=== PATIENT | male | born 1945 | race Caucasian/White ===

== ENCOUNTER 2021-03-31 18:24 | Inpatient (IN) | payer MEDICARE ==
[2021-03-31] MEDS ORDERED: IPRATROPIUM 0.02% NEBU 2.5 ML IH ONE (20:27)
[2021-03-31] MEDS ORDERED: ALBUTEROL 2.5 MG/3 ML NEBU IH ONE (20:27)
[2021-03-31 20:59] LABS: Hematocrit 43.5 % (35.5-45.6); Hemoglobin 14.6 gm/dl (11.8-15.2); Mean Corpuscular HGB Conc 34 % (32-34); Mean Corpuscular Volume 93 fl (84-94); Platelet Count 232 K/mm3 (140-440); Red Blood Count 4.69 M/mm3 (3.65-5.03); Red Cell Distribution Width 13.2 % (13.2-15.2)
--- NOTE | 2021-03-31 21:17 | XRay Report ---
CHEST 1 VIEW INDICATION / CLINICAL INFORMATION: Dyspnea. COMPARISON: None available. FINDINGS: SUPPORT DEVICES: None. HEART / MEDIASTINUM: No significant abnormality. LUNGS / PLEURA: No significant airspace opacities or focal consolidation. Small bilateral effusions. No pneumothorax. ADDITIONAL FINDINGS: No significant additional findings. IMPRESSION: 1. Small bilateral effusions without significant airspace opacities or focal consolidation. Signer Name: Jose Raul Cavazos MD Signed: 03/31/2021 9:13 PM Workstation Name: [id number]
[2021-03-31 21:45] LABS: Blood Urea Nitrogen 9 mg/dL (9-20); Calcium 9.3 mg/dL (8.4-10.2); Hemolysis Index 15
[2021-03-31 21:46] LABS: BUN/Creatinine Ratio 15
[2021-03-31] MEDS ORDERED: ALBUTEROL 2.5 MG/3 ML NEBU IH PRN (23:50)
[2021-03-31] MEDS ORDERED: MORPHINE 2 MG/1 ML INJ IV PRN (23:50)
[2021-03-31] MEDS ORDERED: MAGNESIUM HYDROXIDE (MOM) ORAL LIQD UDC PO PRN (23:50)
[2021-03-31] MEDS ORDERED: ACETAMINOPHEN 325 MG TAB PO PRN (23:50)
[2021-03-31] MEDS ORDERED: ONDANSETRON 4 MG/2 ML INJ IV PRN (23:50)
[2021-03-31] MEDS ORDERED: MORPHINE 4 MG/1 ML INJ IV PRN (23:50)
--- NOTE | 2021-03-31 23:59 | History and Physical Report ---
History of Present Illness Date of examination: 03/31/21 Date of admission: 03/31/2021 Chief complaint: Shortness of Breath History of present illness: 76-year-old male with known history of COPD on 2 L of oxygen by nasal cannula at home, opioid dependence on daily Suboxone, hypertension presents to the emergency room today with a complaint of shortness of breath over the last 24 hours. Patient has also been having some cough which is mildly productive. He denies any fever or chills, denies any chest pain, denies any nausea vomiting and denies any abdominal pain. Patient denies any sick contacts and no recent travel. Denies any contact with anyone with COVID-19. He has been fully vaccinated against COVID-19. Patient received some relief after being given some nebulizing treatments, IV Solu-Medrol and IV magnesium by EMS. Work-up in the emergency room today, chest x-ray reveals small bilateral effusions without significant airspace opacities or focal consolidation. Labs were unremarkable. Patient being admitted for COPD exacerbation. Past History Past Medical History: COPD, hypertension Past Surgical History: No surgical history Social history: smoking (Former Smoker) Family history: no significant family history Medications and Allergies Allergies Allergy/AdvReac Type Severity Reaction Status Date / Time No Known Allergies Allergy Verified 03/31/21 18:28 Review of Systems Constitutional: no fever, no chills Ears, nose, mouth and throat: no nasal congestion, no sore throat Cardiovascular: no chest pain, no palpitations Respiratory: cough, shortness of breath Gastrointestinal: no abdominal pain, no nausea, no vomiting, no diarrhea Genitourinary Male: no dysuria, no hematuria, no flank pain, no nocturia Musculoskeletal: no neck pain, no low back pain Integumentary: no rash, no pruritis Neurological: no headaches, no confusion Psychiatric: no anxiety, no depression Endocrine: no polyphagia, no polydipsia, no polyuria, no nocturia Exam - Constitutional Vitals: Temp Pulse Resp BP Pulse Ox 98.2 F 88 20 125/38 97 03/31/21 19:45 03/31/21 21:14 03/31/21 21:14 03/31/21 21:46 03/31/21 21:46 General appearance: Present: no acute distress, well-nourished - EENT Eyes: Present: PERRL, EOM intact. Absent: scleral icterus ENT: hearing intact, clear oral mucosa, dentition normal - Neck Neck: Present: supple, normal ROM - Respiratory Respiratory effort: normal Respiratory: bilateral: diminished, wheezing (Few scattered wheezes) - Cardiovascular Rhythm: regular Heart Sounds: Present: S1 & S2. Absent: gallop, systolic murmur, diastolic murmur, rub, click - Extremities Extremities: no ischemia, pulses intact, pulses symmetrical, No edema, normal temperature, normal color, Full ROM Peripheral Pulses: within normal limits - Abdominal General gastrointestinal: Present: soft, non-tender, non-distended, normal bowel sounds. Absent: mass - Integumentary Integumentary: Present: clear, warm, dry, normal turgor. Absent: rash - Musculoskeletal Musculoskeletal: strength equal bilaterally - Psychiatric Psychiatric: appropriate mood/affect, intact judgment & insight, memory intact, cooperative - Neurologic Neurologic: CNII-XII intact, no focal deficits, moves all extremities Results - Labs CBC & Chem 7: 03/31/21 20:40 03/31/21 20:40 Labs: Abnormal lab results 03/31/21 03/31/21 Range/Units 20:40 20:40 WBC 11.4 H (4.5-11.0) K/mm3 Sodium 136 L (137-145) mmol/L Creatinine 0.6 L (0.8-1.3) mg/dL Glucose 125 H (75-100) mg/dL Assessment and Plan - Patient Problems (1) COPD exacerbation Current Visit: Yes Status: Acute Plan to address problem: Patient admitted and placed on nebulizing treatments and IV steroid. We will keep O2 saturation greater or equal to 92%. (2) Hypertension Current Visit: Yes Status: Acute Plan to address problem: Blood pressure stable. Resume routine home medications once reconciled. (3) DVT prophylaxis Current Visit: Yes Status: Acute Plan to address problem: Patient placed on subcutaneous heparin. (4) Full code status Current Visit: Yes Status: Acute Plan to address problem: Patient is full code.
--- NOTE | 2021-04-01 00:12 | Emergency Department Report ---
ED Shortness of Breath HPI - General Chief Complaint: Dyspnea/Respdistress Stated Complaint: DIFFICULTY BREATHING Time Seen by Provider: 03/31/21 20:11 Source: EMS Mode of arrival: Stretcher Limitations: No Limitations - History of Present Illness Initial Comments: Chief complaint: "I could not breathe." HPI: This is a 76-year-old male with history of chronic respiratory failure on 2 L nasal cannula, COPD, opioid dependence on daily Suboxone, hypertension who presents with shortness of breath for the last day. Patient has productive cough. He denies fever, chest pain, abdominal pain. He has been vaccinated against COVID-19 including booster dose recently. No known sick contacts. Last hospitalization 2 years ago in [facility]. Recently moved to [place] 2 years ago to be with family members. He received relieved after nebulizer the rapy provided to him by EMS as well as IV Solu-Medrol and IV magnesium. MD Complaint: shortness of breath, cough -: Gradual, days(s) (1 day) Severity: severe Consistency: now resolved Improves With: bronchodilators, other (Solu-Medrol magnesium given per EMS as well as bronchodilator therapy) Worsens With: nothing Known History Of: COPD Associated Symptoms: cough, sputum production - Related Data Home Medications Medication Instructions Recorded Confirmed Last Taken Buprenorphine HCl/Naloxone HCl 1 each SL TID 04/01/21 04/01/21 Unknown [Buprenorphine-Nalox 8-2Mg Film] FLUoxetine [PROzac] 10 mg PO QDAY 04/01/21 04/01/21 Unknown Montelukast [Singulair] 10 mg PO QPM 04/01/21 04/01/21 Unknown Tamsulosin [Flomax] 0.4 mg PO QDAY 04/01/21 04/01/21 Unknown lisinopriL [Lisinopril] 20 mg PO DAILY 04/01/21 04/01/21 Unknown Previous Rx's Medication Instructions Recorded Last Taken Type Fluticasone/Umeclidin/Vilanter 1 each IH DAILY 30 Days 04/04/21 Unknown Rx [Trelegy Ellipta 100-62.5-25] methylPREDNISolone [Medrol 4MG 4 mg PO DAILY #1 04/04/21 Unknown Rx DOSEPAK (21 tabs)] Allergies Allergy/AdvReac Type Severity Reaction Status Date / Time No Known Allergies Allergy Verified 03/31/21 18:28 ED Review of Systems ROS: Stated complaint: DIFFICULTY BREATHING Other details as noted in HPI Comment: All other systems reviewed and negative Constitutional: denies: chills, fever, malaise Respiratory: cough, shortness of breath. denies: wheezing Cardiovascular: denies: chest pain Gastrointestinal: denies: abdominal pain, nausea, vomiting ED Past Medical Hx - Past Medical History Previous Medical History?: Yes Hx Hypertension: Yes Hx COPD: Yes Additional medical history: Opioid dependence on Suboxone therapy - Surgical History Past Surgical History?: Yes Additional Surgical History: Appendectomy - Social History Smoking Status: Former Smoker Substance Use Type: Alcohol - Medications Home Medications: Home Medications Medication Instructions Recorded Confirmed Last Taken Type Buprenorphine HCl/Naloxone HCl 1 each SL TID 04/01/21 04/01/21 Unknown History [Buprenorphine-Nalox 8-2Mg Film] FLUoxetine [PROzac] 10 mg PO QDAY 04/01/21 04/01/21 Unknown History Montelukast [Singulair] 10 mg PO QPM 04/01/21 04/01/21 Unknown History Tamsulosin [Flomax] 0.4 mg PO QDAY 04/01/21 04/01/21 Unknown History lisinopriL [Lisinopril] 20 mg PO DAILY 04/01/21 04/01/21 Unknown History Fluticasone/Umeclidin/Vilanter 1 each IH DAILY 30 Days 04/04/21 Unknown Rx [Trelegy Ellipta 100-62.5-25] methylPREDNISolone [Medrol 4MG 4 mg PO DAILY #1 04/04/21 Unknown Rx DOSEPAK (21 tabs)] ED Physical Exam - General Limitations: No Limitations General appearance: alert, in no apparent distress, other (Speaking full word sentences with mild work of breathing appears out of breath) - Head Head exam: Present: atraumatic, normocephalic - Eye Eye exam: Present: normal appearance - ENT ENT exam: Present: mucous membranes moist - Neck Neck exam: Present: normal inspection, full ROM - Respiratory Respiratory exam: Present: decreased breath sounds, prolonged expiratory. Absent: wheezes, rales, rhonchi, accessory muscle use - Cardiovascular Cardiovascular Exam: Present: regular rate, normal rhythm, normal heart sounds. Absent: systolic murmur, diastolic murmur, rubs, gallop - GI/Abdominal GI/Abdominal exam: Present: soft, normal bowel sounds. Absent: distended, tenderness, guarding, rebound - Rectal Rectal exam: Present: deferred - Extremities Exam Extremities exam: Present: normal inspection - Neurological Exam Neurological exam: Present: alert, oriented X3 - Psychiatric Psychiatric exam: Present: normal affect, normal mood - Skin Skin exam: Present: warm, dry, intact, normal color. Absent: rash ED Course Vital Signs 03/31/21 03/31/21 03/31/21 18:27 19:45 20:00 Temperature 98.4 F 98.2 F Pulse Rate 80 77 71 Pulse Rate [ Bilateral] Respiratory 16 13 29 H Rate Respiratory Rate [Bilateral ] Blood Pressure 152/69 Blood Pressure 150/70 135/72 [Right] O2 Sat by Pulse 99 95 93 Oximetry 03/31/21 03/31/21 03/31/21 20:16 20:30 20:46 Temperature Pulse Rate 68 Pulse Rate [ Bilateral] Respiratory 19 Rate Respiratory Rate [Bilateral ] Blood Pressure 157/76 159/78 157/75 Blood Pressure [Right] O2 Sat by Pulse 93 95 95 Oximetry 03/31/21 03/31/21 03/31/21 21:00 21:14 21:15 Temperature Pulse Rate Pulse Rate [ 88 Bilateral] Respiratory Rate Respiratory 20 Rate [Bilateral ] Blood Pressure 154/64 129/44 Blood Pressure [Right] O2 Sat by Pulse 95 96 Oximetry 03/31/21 03/31/21 03/31/21 21:30 21:46 22:08 Temperature Pulse Rate 75 Pulse Rate [ Bilateral] Respiratory 13 Rate Respiratory Rate [Bilateral ] Blood Pressure 139/43 125/38 125/38 Blood Pressure [Right] O2 Sat by Pulse 98 97 100 Oximetry 03/31/21 04/01/21 22:10 02:00 Temperature Pulse Rate 82 64 Pulse Rate [ Bilateral] Respiratory 11 L 18 Rate Respiratory Rate [Bilateral ] Blood Pressure 125/38 Blood Pressure 137/50 [Right] O2 Sat by Pulse 99 98 Oximetry ED Medical Decision Making - Lab Data Result diagrams: 03/31/21 20:40 04/01/21 04:44 - Radiology Data Radiology results: report reviewed [facility] [address] [place] [address] XRay Report Signed Patient: LUCRECIA DUNLAP MR#: [id number] [birth year] : 1945 Acct:[id number] Age/Sex: 76 / M ADM Date: 03/31/21 Loc: ED Attending Dr: Ordering Physician: Kim Garrido MD Date of Service: 03/31/21 Procedure(s): XR chest 1V ap Accession Number(s): [id number] cc: Kim Garrido MD Fluoro Time In Minutes: CHEST 1 VIEW INDICATION / CLINICAL INFORMATION: Dyspnea. COMPARISON: None available. FINDINGS: SUPPORT DEVICES: None. HEART / MEDIASTINUM: No significant abnormality. LUNGS / PLEURA: No significant airspace opacities or focal consolidation. Small bilateral effusions. No pneumothorax. ADDITIONAL FINDINGS: No significant additional findings. IMPRESSION: 1. Small bilateral effusions without significant airspace opacities or focal consolidation. Signer Name: Jose Raul Herman MD Signed: 03/31/2021 9:13 PM Workstation Name: [id number] Transcribed By: SB Dictated By: JOSE RAUL HERMAN MD Electronically Authenticated By: JOSE RAUL HERMAN MD Signed Date/Time: 03/31/212112 DD/ 10 TD/TT: - Medical Decision Making Acute COPD exacerbation: I personally reviewed chest radiograph: No indication of pneumonia or effusion. No indication of pneumothorax. I did see the hyperinflation of the lungs and atelectasis. Patient received additional albuterol 5 mg and Levaquin. Admitted to the hospital service in [facility] [place] CBC chemistry unremarkable. Critical care attestation.: If time is entered above; I have spent that time in minutes in the direct care of this critically ill patient, excluding procedure time. ED Disposition Clinical Impression: COPD exacerbation Disposition: ADMITTED INPATIENT Is pt being admited?: Yes Does the pt Need Aspirin: No Condition: Stable
[2021-04-01 03:01] LABS: Basophils % (Manual) 0 % (0.0-1.8); Eosinophils % (Manual) 0 % (0.0-4.3); RBC Morphology Normal; Total Cells Counted 100
[2021-04-01 03:02] LABS: Platelet Estimate Consistent w Auto
[2021-04-01] MEDS: IPRATROPIUM/ALBUTEROL SULFATE 3 ML AMPUL.NEB IH SCH ×6 (04:09→21:18)
[2021-04-01 05:46] LABS: INR 0.88 (0.87-1.13)
[2021-04-01 05:54] LABS: Blood Urea Nitrogen 11 mg/dL (9-20); Calcium 9.1 mg/dL (8.4-10.2); Hemolysis Index 0
[2021-04-01 06:09] LABS: BUN/Creatinine Ratio 16
[2021-04-01] MEDS: methylPREDNISolone Sod Succinate 40 MG/1 ML INJ IV SCH ×3 (06:23→22:00)
[2021-04-01] MEDS: HEPARIN 5,000 UNIT/1 ML VIAL SUB-Q SCH ×3 (06:23→22:00)
--- NOTE | 2021-04-01 09:24 | Progress Note ---
Assessment and Plan Assessment and plan: Acute COPD exacerbation Hypertension 04/01/2021. Continue IV Solu-Medrol and bronchodilators/nebulizers. Continue O2 and wean as tolerated. History Interval history: No new issues overnight. Hospitalist Physical - Constitutional Vitals: Temp Pulse Resp BP Pulse Ox 98.2 F 64 18 137/50 98 03/31/21 19:45 04/01/21 02:00 04/01/21 02:00 04/01/21 02:00 04/01/21 02:00 General appearance: Present: no acute distress, well-nourished - EENT Eyes: Present: PERRL, EOM intact ENT: hearing intact, clear oral mucosa, dentition normal - Neck Neck: Present: supple, normal ROM - Respiratory Respiratory effort: normal Respiratory: bilateral: CTA - Cardiovascular Rhythm: regular Heart Sounds: Present: S1 & S2. Absent: gallop, rub - Extremities Extremities: no ischemia, No edema, Full ROM - Abdominal General gastrointestinal: soft, non-tender, non-distended, normal bowel sounds - Integumentary Integumentary: Present: clear, warm, dry - Neurologic Neurologic: CNII-XII intact, moves all extremities Results - Labs CBC & Chem 7: 03/31/21 20:40 04/01/21 04:44 Labs: Laboratory Last Values WBC 11.4 K/mm3 (4.5-11.0) H 03/31/21 20:40 RBC 4.69 M/mm3 (3.65-5.03) 03/31/21 20:40 Hgb 14.6 gm/dl (11.8-15.2) 03/31/21 20:40 Hct 43.5 % (35.5-45.6) 03/31/21 20:40 MCV 93 fl (84-94) 03/31/21 20:40 MCH 31 pg (28-32) 03/31/21 20:40 MCHC 34 % (32-34) 03/31/21 20:40 RDW 13.2 % (13.2-15.2) 03/31/21 20:40 Plt Count 232 K/mm3 (140-440) 03/31/21 20:40 Add Manual Diff Complete 03/31/21 20:40 Total Counted 100 03/31/21 20:40 Seg Neutrophils % [place]ling Floor Desk Clerk 03/31/21 20:40 Seg Neuts % (Manual) 95.0 % (40.0-70.0) H 03/31/21 20:40 Band Neutrophils % 0 % 03/31/21 20:40 Lymphocytes % (Manual) 4.0 % (13.4-35.0) L 03/31/21 20:40 Reactive Lymphs % (Man) 0 % 03/31/21 20:40 Monocytes % (Manual) 1.0 % (0.0-7.3) 03/31/21 20:40 Eosinophils % (Manual) 0 % (0.0-4.3) 03/31/21 20:40 Basophils % (Manual) 0 % (0.0-1.8) 03/31/21 20:40 Metamyelocytes % 0 % 03/31/21 20:40 Myelocytes % 0 % 03/31/21 20:40 Promyelocytes % 0 % 03/31/21 20:40 Blast Cells % 0 % 03/31/21 20:40 Nucleated RBC % Not Reportable 03/31/21 20:40 Seg Neutrophils # Man 10.8 K/mm3 (1.8-7.7) H 03/31/21 20:40 Band Neutrophils # 0.0 K/mm3 03/31/21 20:40 Lymphocytes # (Manual) 0.5 K/mm3 (1.2-5.4) L 03/31/21 20:40 Abs React Lymphs (Man) 0.0 K/mm3 03/31/21 20:40 Monocytes # (Manual) 0.1 K/mm3 (0.0-0.8) 03/31/21 20:40 Eosinophils # (Manual) 0.0 K/mm3 (0.0-0.4) 03/31/21 20:40 Basophils # (Manual) 0.0 K/mm3 (0.0-0.1) 03/31/21 20:40 Metamyelocytes # 0.0 K/mm3 03/31/21 20:40 Myelocytes # 0.0 K/mm3 03/31/21 20:40 Promyelocytes # 0.0 K/mm3 03/31/21 20:40 Blast Cells # 0.0 K/mm3 03/31/21 20:40 WBC Morphology Not Reportable 03/31/21 20:40 Hypersegmented Neuts Not Reportable 03/31/21 20:40 Hyposegmented Neuts Not Reportable 03/31/21 20:40 Hypogranular Neuts Not Reportable 03/31/21 20:40 Smudge Cells Not Reportable 03/31/21 20:40 Toxic Granulation Not Reportable 03/31/21 20:40 Toxic Vacuolation Not Reportable 03/31/21 20:40 Dohle Bodies Not Reportable 03/31/21 20:40 Pelger-Huet Anomaly Not Reportable 03/31/21 20:40 Shayy Rods Not Reportable 03/31/21 20:40 Platelet Estimate Consistent w auto 03/31/21 20:40 Clumped Platelets Not Reportable 03/31/21 20:40 Plt Clumps, EDTA Not Reportable 03/31/21 20:40 Large Platelets Not Reportable 03/31/21 20:40 Giant Platelets Not Reportable 03/31/21 20:40 Platelet Satelliting Not Reportable 03/31/21 20:40 Plt Morphology Comment Not Reportable 03/31/21 20:40 RBC Morphology Normal 03/31/21 20:40 Dimorphic RBCs Not Reportable 03/31/21 20:40 Polychromasia Not Reportable 03/31/21 20:40 Hypochromasia Not Reportable 03/31/21 20:40 Poikilocytosis Not Reportable 03/31/21 20:40 Anisocytosis Not Reportable 03/31/21 20:40 Microcytosis Not Reportable 03/31/21 20:40 Macrocytosis Not Reportable 03/31/21 20:40 Spherocytes Not Reportable 03/31/21 20:40 Pappenheimer Bodies Not Reportable 03/31/21 20:40 Sickle Cells Not Reportable 03/31/21 20:40 Target Cells Not Reportable 03/31/21 20:40 Tear Drop Cells Not Reportable 03/31/21 20:40 Ovalocytes Not Reportable 03/31/21 20:40 Helmet Cells Not Reportable 03/31/21 20:40 Montejo-[place]al[place] Bodies Not Reportable 03/31/21 20:40 [place] Rings Not Reportable 03/31/21 20:40 [place] Cells Not Reportable 03/31/21 20:40 Bite Cells Not Reportable 03/31/21 20:40 Crenated Cell Not Reportable 03/31/21 20:40 Elliptocytes Not Reportable 03/31/21 20:40 Acanthocytes (Spur) Not Reportable 03/31/21 20:40 Rouleaux Not Reportable 03/31/21 20:40 Hemoglobin C Crystals Not Reportable 03/31/21 20:40 Schistocytes Not Reportable 03/31/21 20:40 Malaria parasites Not Reportable 03/31/21 20:40 [place] Bodies Not Reportable 03/31/21 20:40 Hem Pathologist Commnt No 03/31/21 20:40 PT 12.9 Sec. (12.2-14.9) 04/01/21 04:44 INR 0.88 (0.87-1.13) 04/01/21 04:44 Sodium 138 mmol/L (137-145) 04/01/21 04:44 Potassium 4.9 mmol/L (3.6-5.0) 04/01/21 04:44 Chloride 100.0 mmol/L (98-107) 04/01/21 04:44 Carbon Dioxide 24 mmol/L (22-30) 04/01/21 04:44 Anion Gap 19 mmol/L 04/01/21 04:44 BUN 11 mg/dL (9-20) 04/01/21 04:44 Creatinine 0.7 mg/dL (0.8-1.3) L 04/01/21 04:44 Estimated GFR > 60 ml/min 04/01/21 04:44 BUN/Creatinine Ratio 16 % 04/01/21 04:44 Glucose 188 mg/dL (75-100) H 04/01/21 04:44 Calcium 9.1 mg/dL (8.4-10.2) 04/01/21 04:44 Active Medications - Current Medications Current Medications: Generic Name Dose Route Start Last Admin Trade Name Freq PRN Reason Stop Dose Admin Acetaminophen 650 mg 03/31/21 23:50 Acetaminophen 325 Mg Tab PO Q4H PRN Pain MILD(1-3)/Fever >100.5/MAGDALENO Albuterol 2.5 mg 03/31/21 23:50 Albuterol 2.5 Mg/3 Ml Nebu IH Q3HRT PRN Shortness Of Breath Albuterol/Ipratropium 1 ampul 04/01/21 00:00 04/01/21 08:36 Ipratropium/Albuterol Sulfate 3 Ml Ampul.Neb IH Not Given Q4HRT SONU Heparin Sodium (Porcine) 5,000 unit 04/01/21 06:00 04/01/21 06:23 Heparin 5,000 Unit/1 Ml Vial SUB-Q 5,000 unit Q8HR SONU Administration Magnesium Hydroxide 30 ml 03/31/21 23:50 Magnesium Hydroxide (Mom) Oral Liqd Udc PO Q4H PRN Constipation Methylprednisolone Sodium Succinate 40 mg 04/01/21 06:00 04/01/21 06:23 Methylprednisolone Sod Succinate 40 Mg/1 Ml Inj IV 40 mg Q8HR SONU Administration Morphine Sulfate 2 mg 03/31/21 23:50 Morphine 2 Mg/1 Ml Inj IV Q4H PRN Pain, Moderate (4-6) Morphine Sulfate 4 mg 03/31/21 23:50 Morphine 4 Mg/1 Ml Inj IV Q4H PRN Pain , Severe (7-10) Ondansetron HCl 4 mg 03/31/21 23:50 Ondansetron 4 Mg/2 Ml Inj IV Q8H PRN Nausea And Vomiting Sodium Chloride 10 ml 04/01/21 10:00 Sodium Chloride 0.9% 10 Ml Flush Syringe IV BID SONU Sodium Chloride 10 ml 03/31/21 23:50 Sodium Chloride 0.9% 10 Ml Flush Syringe IV PRN PRN LINE FLUSH
[2021-04-01] MEDS ORDERED: [UNRECOGNIZED DRUG - OTHER] SL SCH (20:00)
[2021-04-01] MEDS ORDERED: BUPRENORPHINE 2 MG/NALOXONE 0.5 MG FILM SL SCH (20:00)
[2021-04-01] MEDS ORDERED: BUPRENORPHINE HCL SL SCH (20:00)
[2021-04-01] MEDS ORDERED: NALOXONE HCL SL SCH (20:00)
[2021-04-01] MEDS: TAMSULOSIN 0.4 MG CAP PO SCH (22:00)
[2021-04-01] MEDS: BUPRENORPHINE 2 MG/NALOXONE 0.5 MG FILM SL SCH (22:00)
[2021-04-01] MEDS: MONTELUKAST 10 MG TAB PO SCH (22:05)
[2021-04-02] MEDS: IPRATROPIUM/ALBUTEROL SULFATE 3 ML AMPUL.NEB IH SCH ×5 (05:12→17:31)
[2021-04-02] MEDS: HEPARIN 5,000 UNIT/1 ML VIAL SUB-Q SCH ×3 (05:29→21:08)
[2021-04-02] MEDS: methylPREDNISolone Sod Succinate 40 MG/1 ML INJ IV SCH ×3 (05:29→21:05)
[2021-04-02] MEDS: BUPRENORPHINE 2 MG/NALOXONE 0.5 MG FILM SL SCH ×3 (08:45→21:08)
[2021-04-02] MEDS: LISINOPRIL 20 MG TAB PO SCH (09:16)
[2021-04-02] MEDS: FLUoxetine 10 MG TAB PO SCH (09:16)
[2021-04-02] MEDS: TAMSULOSIN 0.4 MG CAP PO SCH (09:16)
[2021-04-02] MEDS ORDERED: NON-FORMULARY EACH (Fluticasone/Umeclidin/Vilanter [Trelegy Ellipta 100-62.5-25] 1 EACH Bl IH SCH (10:00)
--- NOTE | 2021-04-02 12:42 | Progress Note ---
Assessment and Plan Assessment and plan: Acute COPD exacerbation Hypertension 04/01/2021. Continue IV Solu-Medrol and bronchodilators/nebulizers. Continue O2 and wean as tolerated. 04/02/2021. Patient noted to have increased work of breathing and shortness of breath posttreatment and despite current therapies. We will continue with IV steroids and taper as tolerated. Pulmonary consultation History Interval history: No new issues overnight. Patient still exhibiting shortness of breath and inc reased work of breathing Hospitalist Physical - Constitutional Vitals: Temp Pulse Resp BP Pulse Ox 98.3 F 70 20 102/47 97 04/02/21 08:46 04/02/21 08:46 04/02/21 08:46 04/02/21 08:46 04/02/21 09:00 General appearance: Present: no acute distress, well-nourished - EENT Eyes: Present: PERRL, EOM intact ENT: hearing intact, clear oral mucosa, dentition normal - Neck Neck: Present: supple, normal ROM - Respiratory Respiratory effort: normal Respiratory: bilateral: CTA - Cardiovascular Rhythm: regular Heart Sounds: Present: S1 & S2. Absent: gallop, rub - Extremities Extremities: no ischemia, No edema, Full ROM - Abdominal General gastrointestinal: soft, non-tender, non-distended, normal bowel sounds - Integumentary Integumentary: Present: clear, warm, dry - Neurologic Neurologic: CNII-XII intact, moves all extremities Results - Labs CBC & Chem 7: 03/31/21 20:40 04/01/21 04:44 Labs: Laboratory Last Values WBC 11.4 K/mm3 (4.5-11.0) H 03/31/21 20:40 RBC 4.69 M/mm3 (3.65-5.03) 03/31/21 20:40 Hgb 14.6 gm/dl (11.8-15.2) 03/31/21 20:40 Hct 43.5 % (35.5-45.6) 03/31/21 20:40 MCV 93 fl (84-94) 03/31/21 20:40 MCH 31 pg (28-32) 03/31/21 20:40 MCHC 34 % (32-34) 03/31/21 20:40 RDW 13.2 % (13.2-15.2) 03/31/21 20:40 Plt Count 232 K/mm3 (140-440) 03/31/21 20:40 Add Manual Diff Complete 03/31/21 20:40 Total Counted 100 03/31/21 20:40 Seg Neutrophils % It Systems Analyst Consultant 03/31/21 20:40 Seg Neuts % (Manual) 95.0 % (40.0-70.0) H 03/31/21 20:40 Band Neutrophils % 0 % 03/31/21 20:40 Lymphocytes % (Manual) 4.0 % (13.4-35.0) L 03/31/21 20:40 Reactive Lymphs % (Man) 0 % 03/31/21 20:40 Monocytes % (Manual) 1.0 % (0.0-7.3) 03/31/21 20:40 Eosinophils % (Manual) 0 % (0.0-4.3) 03/31/21 20:40 Basophils % (Manual) 0 % (0.0-1.8) 03/31/21 20:40 Metamyelocytes % 0 % 03/31/21 20:40 Myelocytes % 0 % 03/31/21 20:40 Promyelocytes % 0 % 03/31/21 20:40 Blast Cells % 0 % 03/31/21 20:40 Nucleated RBC % Not Reportable 03/31/21 20:40 Seg Neutrophils # Man 10.8 K/mm3 (1.8-7.7) H 03/31/21 20:40 Band Neutrophils # 0.0 K/mm3 03/31/21 20:40 Lymphocytes # (Manual) 0.5 K/mm3 (1.2-5.4) L 03/31/21 20:40 Abs React Lymphs (Man) 0.0 K/mm3 03/31/21 20:40 Monocytes # (Manual) 0.1 K/mm3 (0.0-0.8) 03/31/21 20:40 Eosinophils # (Manual) 0.0 K/mm3 (0.0-0.4) 03/31/21 20:40 Basophils # (Manual) 0.0 K/mm3 (0.0-0.1) 03/31/21 20:40 Metamyelocytes # 0.0 K/mm3 03/31/21 20:40 Myelocytes # 0.0 K/mm3 03/31/21 20:40 Promyelocytes # 0.0 K/mm3 03/31/21 20:40 Blast Cells # 0.0 K/mm3 03/31/21 20:40 WBC Morphology Not Reportable 03/31/21 20:40 Hypersegmented Neuts Not Reportable 03/31/21 20:40 Hyposegmented Neuts Not Reportable 03/31/21 20:40 Hypogranular Neuts Not Reportable 03/31/21 20:40 Smudge Cells Not Reportable 03/31/21 20:40 Toxic Granulation Not Reportable 03/31/21 20:40 Toxic Vacuolation Not Reportable 03/31/21 20:40 Dohle Bodies Not Reportable 03/31/21 20:40 Pelger-Huet Anomaly Not Reportable 03/31/21 20:40 Shayy Rods Not Reportable 03/31/21 20:40 Platelet Estimate Consistent w auto 03/31/21 20:40 Clumped Platelets Not Reportable 03/31/21 20:40 Plt Clumps, EDTA Not Reportable 03/31/21 20:40 Large Platelets Not Reportable 03/31/21 20:40 Giant Platelets Not Reportable 03/31/21 20:40 Platelet Satelliting Not Reportable 03/31/21 20:40 Plt Morphology Comment Not Reportable 03/31/21 20:40 RBC Morphology Normal 03/31/21 20:40 Dimorphic RBCs Not Reportable 03/31/21 20:40 Polychromasia Not Reportable 03/31/21 20:40 Hypochromasia Not Reportable 03/31/21 20:40 Poikilocytosis Not Reportable 03/31/21 20:40 Anisocytosis Not Reportable 03/31/21 20:40 Microcytosis Not Reportable 03/31/21 20:40 Macrocytosis Not Reportable 03/31/21 20:40 Spherocytes Not Reportable 03/31/21 20:40 Pappenheimer Bodies Not Reportable 03/31/21 20:40 Sickle Cells Not Reportable 03/31/21 20:40 Target Cells Not Reportable 03/31/21 20:40 Tear Drop Cells Not Reportable 03/31/21 20:40 Ovalocytes Not Reportable 03/31/21 20:40 Helmet Cells Not Reportable 03/31/21 20:40 [place] Bodies Not Reportable 03/31/21 20:40 [place] Rings Not Reportable 03/31/21 20:40 [place] Cells Not Reportable 03/31/21 20:40 Bite Cells Not Reportable 03/31/21 20:40 Crenated Cell Not Reportable 03/31/21 20:40 Elliptocytes Not Reportable 03/31/21 20:40 Acanthocytes (Spur) Not Reportable 03/31/21 20:40 Rouleaux Not Reportable 03/31/21 20:40 Hemoglobin C Crystals Not Reportable 03/31/21 20:40 Schistocytes Not Reportable 03/31/21 20:40 Malaria parasites Not Reportable 03/31/21 20:40 [place] Bodies Not Reportable 03/31/21 20:40 Hem Pathologist Commnt No 03/31/21 20:40 PT 12.9 Sec. (12.2-14.9) 04/01/21 04:44 INR 0.88 (0.87-1.13) 04/01/21 04:44 Sodium 138 mmol/L (137-145) 04/01/21 04:44 Potassium 4.9 mmol/L (3.6-5.0) 04/01/21 04:44 Chloride 100.0 mmol/L (98-107) 04/01/21 04:44 Carbon Dioxide 24 mmol/L (22-30) 04/01/21 04:44 Anion Gap 19 mmol/L 04/01/21 04:44 BUN 11 mg/dL (9-20) 04/01/21 04:44 Creatinine 0.7 mg/dL (0.8-1.3) L 04/01/21 04:44 Estimated GFR > 60 ml/min 04/01/21 04:44 BUN/Creatinine Ratio 16 % 04/01/21 04:44 Glucose 188 mg/dL (75-100) H 04/01/21 04:44 Calcium 9.1 mg/dL (8.4-10.2) 04/01/21 04:44 Vale/IV: Voiding Method Toilet Active Medications - Current Medications Current Medications: Generic Name Dose Route Start Last Admin Trade Name Freq PRN Reason Stop Dose Admin Acetaminophen 650 mg 03/31/21 23:50 Acetaminophen 325 Mg Tab PO Q4H PRN Pain MILD(1-3)/Fever >100.5/MAGDALENO Albuterol 2.5 mg 03/31/21 23:50 Albuterol 2.5 Mg/3 Ml Nebu IH Q3HRT PRN Shortness Of Breath Albuterol/Ipratropium 1 ampul 04/01/21 00:00 04/02/21 11:16 Ipratropium/Albuterol Sulfate 3 Ml Ampul.Neb IH Not Given Q4HRT SONU Buprenorphine HCl 4 each 04/01/21 20:00 04/02/21 08:45 Buprenorphine 2 Mg/Naloxone 0.5 Mg Film SL 4 each TID SONU Administration Fluoxetine HCl 10 mg 04/02/21 10:00 04/02/21 09:16 Fluoxetine 10 Mg Tab PO 10 mg QDAY SONU Administration Heparin Sodium (Porcine) 5,000 unit 04/01/21 06:00 04/02/21 05:29 Heparin 5,000 Unit/1 Ml Vial SUB-Q 5,000 unit Q8HR SONU Administration Lisinopril 20 mg 04/02/21 10:00 04/02/21 09:16 Lisinopril 20 Mg Tab PO 20 mg DAILY SONU Administration Magnesium Hydroxide 30 ml 03/31/21 23:50 Magnesium Hydroxide (Mom) Oral Liqd Udc PO Q4H PRN Constipation Methylprednisolone Sodium Succinate 40 mg 04/01/21 06:00 04/02/21 05:29 Methylprednisolone Sod Succinate 40 Mg/1 Ml Inj IV 40 mg Q8HR SONU Administration Montelukast Sodium 10 mg 04/01/21 18:00 04/01/21 22:05 Montelukast 10 Mg Tab PO 10 mg QPM SONU Administration Ondansetron HCl 4 mg 03/31/21 23:50 Ondansetron 4 Mg/2 Ml Inj IV Q8H PRN Nausea And Vomiting Sodium Chloride 10 ml 04/01/21 10:00 04/02/21 09:16 Sodium Chloride 0.9% 10 Ml Flush Syringe IV 10 ml BID SONU Administration Sodium Chloride 10 ml 03/31/21 23:50 Sodium Chloride 0.9% 10 Ml Flush Syringe IV PRN PRN LINE FLUSH Tamsulosin HCl 0.4 mg 04/01/21 18:30 04/02/21 09:16 Tamsulosin 0.4 Mg Cap PO 0.4 mg QDAY SONU Administration
--- NOTE | 2021-04-02 13:52 | Consultation ---
History of Present Illness Consult date: 04/02/21 Requesting physician: BE ORTEGA Reason for consult: COPD, hypoxemia History of present illness: 76 y/o male with history of COPD, not followed by our practice admitted with COPD exacerbation. CXR shows small bilateral pleural effusions. patient is fully vaccinated against covid and denies any covid contacts per report. SUffers from chronic respiratory failure and is on 2 liters at home. Past History Past Medical History: COPD, hypertension Past Surgical History: No surgical history Social history: smoking (Former Smoker) Family history: no significant family history Medications and Allergies Allergies Allergy/AdvReac Type Severity Reaction Status Date / Time No Known Allergies Allergy Verified 03/31/21 18:28 Home Medications Medication Instructions Recorded Confirmed Last Taken Type Buprenorphine HCl/Naloxone HCl 1 each SL TID 04/01/21 04/01/21 Unknown History [Buprenorphine-Nalox 8-2Mg Film] FLUoxetine [PROzac] 10 mg PO QDAY 04/01/21 04/01/21 Unknown History Fluticasone/Umeclidin/Vilanter 1 each IH DAILY 04/01/21 04/01/21 Unknown History [Trelegy Ellipta 100-62.5-25] Montelukast [Singulair] 10 mg PO QPM 04/01/21 04/01/21 Unknown History Tamsulosin [Flomax] 0.4 mg PO QDAY 04/01/21 04/01/21 Unknown History lisinopriL [Lisinopril] 20 mg PO DAILY 04/01/21 04/01/21 Unknown History Active Meds: Active Medications Acetaminophen (Acetaminophen 325 Mg Tab) 650 mg PO Q4H PRN PRN Reason: Pain MILD(1-3)/Fever >100.5/MAGDALENO Albuterol (Albuterol 2.5 Mg/3 Ml Nebu) 2.5 mg IH Q3HRT PRN PRN Reason: Shortness Of Breath Albuterol/Ipratropium (Ipratropium/Albuterol Sulfate 3 Ml Ampul.Neb) 1 ampul IH Q4HRT [facility] Last Admin: 04/02/21 13:00 Dose: 1 ampul Buprenorphine HCl (Buprenorphine 2 Mg/Naloxone 0.5 Mg Film) 4 each SL TID [facility] Last Admin: 04/02/21 08:45 Dose: 4 each Fluoxetine HCl (Fluoxetine 10 Mg Tab) 10 mg PO QDAY [facility] Last Admin: 04/02/21 09:16 Dose: 10 mg Heparin Sodium (Porcine) (Heparin 5,000 Unit/1 Ml Vial) 5,000 unit SUB-Q Q8HR [facility] Last Admin: 04/02/21 05:29 Dose: 5,000 unit Lisinopril (Lisinopril 20 Mg Tab) 20 mg PO DAILY [facility] Last Admin: 04/02/21 09:16 Dose: 20 mg Magnesium Hydroxide (Magnesium Hydroxide (Mom) Oral Liqd Udc) 30 ml PO Q4H PRN PRN Reason: Constipation Methylprednisolone Sodium Succinate (Methylprednisolone Sod Succinate 40 Mg/1 Ml Inj) 40 mg IV Q8HR [facility] Last Admin: 04/02/21 05:29 Dose: 40 mg Montelukast Sodium (Montelukast 10 Mg Tab) 10 mg PO QPM [facility] Last Admin: 04/01/21 22:05 Dose: 10 mg Ondansetron HCl (Ondansetron 4 Mg/2 Ml Inj) 4 mg IV Q8H PRN PRN Reason: Nausea And Vomiting Sodium Chloride (Sodium Chloride 0.9% 10 Ml Flush Syringe) 10 ml IV BID [facility] Last Admin: 04/02/21 09:16 Dose: 10 ml Sodium Chloride (Sodium Chloride 0.9% 10 Ml Flush Syringe) 10 ml IV PRN PRN PRN Reason: LINE FLUSH Tamsulosin HCl (Tamsulosin 0.4 Mg Cap) 0.4 mg PO QDAY [facility] Last Admin: 04/02/21 09:16 Dose: 0.4 mg Review of Systems All systems: negative Physical Examination Vital signs: Vital Signs Temp Pulse Resp BP Pulse Ox 98.4 F 80 16 150/70 99 03/31/21 18:27 03/31/21 18:27 03/31/21 18:27 03/31/21 18:27 03/31/21 18:27 Results - Laboratory Findings CBC and BMP: 03/31/21 20:40 04/01/21 04:44 PT/INR, D-dimer PT 12.9 Sec. (12.2-14.9) 04/01/21 04:44 INR 0.88 (0.87-1.13) 04/01/21 04:44 Abnormal lab findings: Abnormal Labs 03/31/21 03/31/21 04/01/21 20:40 20:40 04:44 WBC 11.4 H Seg Neuts % (Manual) 95.0 H Lymphocytes % (Manual) 4.0 L Seg Neutrophils # Man 10.8 H Lymphocytes # (Manual) 0.5 L Sodium 136 L Creatinine 0.6 L 0.7 L Glucose 125 H 188 H - Diagnostic Findings Chest x-ray: image reviewed Assessment and Plan 76 y/o male with chronic respiratory failure admitted with COPD exacerbation. 1. Will send BNP 2. If mildly elevated would consider some gentle diuresis given bilateral pleural effusions 3. Agree with current steroid regimen 4. Will add BID pulmicort.
[2021-04-02] MEDS: MONTELUKAST 10 MG TAB PO SCH (18:25)
[2021-04-03] MEDS: methylPREDNISolone Sod Succinate 40 MG/1 ML INJ IV SCH ×3 (05:45→21:43)
[2021-04-03] MEDS: HEPARIN 5,000 UNIT/1 ML VIAL SUB-Q SCH ×3 (05:45→21:58)
[2021-04-03] MEDS: IPRATROPIUM/ALBUTEROL SULFATE 3 ML AMPUL.NEB IH SCH ×6 (07:45→20:33)
--- NOTE | 2021-04-03 09:52 | Progress Note ---
Assessment and Plan Assessment and plan: Acute COPD exacerbation Bilateral pleural effusion Hypertension 04/01/2021. Continue IV Solu-Medrol and bronchodilators/nebulizers. Continue O2 and wean as tolerated. 04/02/2021. Patient noted to have increased work of breathing and shortness of breath posttreatment and despite current therapies. We will continue with IV steroids and taper as tolerated. Pulmonary consultation 04/03/2021. Patient continues to have dyspnea and increased work of breathing. We will check BNP and echocardiogram given the bilateral pleural effusions. I suspect patient may have a component of heart failure. History Interval history: No new issues overnight. Patient still exhibiting shortness of breath and increased work of breathing Hospitalist Physical - Constitutional Vitals: Temp Pulse Resp BP Pulse Ox 98.4 F 65 18 125/53 95 04/03/21 04:05 04/03/21 07:46 04/03/21 07:46 04/03/21 04:05 04/03/21 08:14 General appearance: Present: no acute distress, well-nourished - EENT Eyes: Present: PERRL, EOM intact ENT: hearing intact, clear oral mucosa, dentition normal - Neck Neck: Present: supple, normal ROM - Respiratory Respiratory effort: normal Respiratory: bilateral: CTA - Cardiovascular Rhythm: regular Heart Sounds: Present: S1 & S2. Absent: gallop, rub - Extremities Extremities: no ischemia, No edema, Full ROM - Abdominal General gastrointestinal: soft, non-tender, non-distended, normal bowel sounds - Integumentary Integumentary: Present: clear, warm, dry - Neurologic Neurologic: CNII-XII intact, moves all extremities Results - Labs CBC & Chem 7: 03/31/21 20:40 04/01/21 04:44 Labs: Laboratory Last Values WBC 11.4 K/mm3 (4.5-11.0) H 03/31/21 20:40 RBC 4.69 M/mm3 (3.65-5.03) 03/31/21 20:40 Hgb 14.6 gm/dl (11.8-15.2) 03/31/21 20:40 Hct 43.5 % (35.5-45.6) 03/31/21 20:40 MCV 93 fl (84-94) 03/31/21 20:40 MCH 31 pg (28-32) 03/31/21 20:40 MCHC 34 % (32-34) 03/31/21 20:40 RDW 13.2 % (13.2-15.2) 03/31/21 20:40 Plt Count 232 K/mm3 (140-440) 03/31/21 20:40 Add Manual Diff Complete 03/31/21 20:40 Total Counted 100 03/31/21 20:40 Seg Neutrophils % [place] Sdet 03/31/21 20:40 Seg Neuts % (Manual) 95.0 % (40.0-70.0) H 03/31/21 20:40 Band Neutrophils % 0 % 03/31/21 20:40 Lymphocytes % (Manual) 4.0 % (13.4-35.0) L 03/31/21 20:40 Reactive Lymphs % (Man) 0 % 03/31/21 20:40 Monocytes % (Manual) 1.0 % (0.0-7.3) 03/31/21 20:40 Eosinophils % (Manual) 0 % (0.0-4.3) 03/31/21 20:40 Basophils % (Manual) 0 % (0.0-1.8) 03/31/21 20:40 Metamyelocytes % 0 % 03/31/21 20:40 Myelocytes % 0 % 03/31/21 20:40 Promyelocytes % 0 % 03/31/21 20:40 Blast Cells % 0 % 03/31/21 20:40 Nucleated RBC % Not Reportable 03/31/21 20:40 Seg Neutrophils # Man 10.8 K/mm3 (1.8-7.7) H 03/31/21 20:40 Band Neutrophils # 0.0 K/mm3 03/31/21 20:40 Lymphocytes # (Manual) 0.5 K/mm3 (1.2-5.4) L 03/31/21 20:40 Abs React Lymphs (Man) 0.0 K/mm3 03/31/21 20:40 Monocytes # (Manual) 0.1 K/mm3 (0.0-0.8) 03/31/21 20:40 Eosinophils # (Manual) 0.0 K/mm3 (0.0-0.4) 03/31/21 20:40 Basophils # (Manual) 0.0 K/mm3 (0.0-0.1) 03/31/21 20:40 Metamyelocytes # 0.0 K/mm3 03/31/21 20:40 Myelocytes # 0.0 K/mm3 03/31/21 20:40 Promyelocytes # 0.0 K/mm3 03/31/21 20:40 Blast Cells # 0.0 K/mm3 03/31/21 20:40 WBC Morphology Not Reportable 03/31/21 20:40 Hypersegmented Neuts Not Reportable 03/31/21 20:40 Hyposegmented Neuts Not Reportable 03/31/21 20:40 Hypogranular Neuts Not Reportable 03/31/21 20:40 Smudge Cells Not Reportable 03/31/21 20:40 Toxic Granulation Not Reportable 03/31/21 20:40 Toxic Vacuolation Not Reportable 03/31/21 20:40 Dohle Bodies Not Reportable 03/31/21 20:40 Pelger-Huet Anomaly Not Reportable 03/31/21 20:40 Shayy Rods Not Reportable 03/31/21 20:40 Platelet Estimate Consistent w auto 03/31/21 20:40 Clumped Platelets Not Reportable 03/31/21 20:40 Plt Clumps, EDTA Not Reportable 03/31/21 20:40 Large Platelets Not Reportable 03/31/21 20:40 Giant Platelets Not Reportable 03/31/21 20:40 Platelet Satelliting Not Reportable 03/31/21 20:40 Plt Morphology Comment Not Reportable 03/31/21 20:40 RBC Morphology Normal 03/31/21 20:40 Dimorphic RBCs Not Reportable 03/31/21 20:40 Polychromasia Not Reportable 03/31/21 20:40 Hypochromasia Not Reportable 03/31/21 20:40 Poikilocytosis Not Reportable 03/31/21 20:40 Anisocytosis Not Reportable 03/31/21 20:40 Microcytosis Not Reportable 03/31/21 20:40 Macrocytosis Not Reportable 03/31/21 20:40 Spherocytes Not Reportable 03/31/21 20:40 Pappenheimer Bodies Not Reportable 03/31/21 20:40 Sickle Cells Not Reportable 03/31/21 20:40 Target Cells Not Reportable 03/31/21 20:40 Tear Drop Cells Not Reportable 03/31/21 20:40 Ovalocytes Not Reportable 03/31/21 20:40 Helmet Cells Not Reportable 03/31/21 20:40 [place] Bodies Not Reportable 03/31/21 20:40 [place] Rings Not Reportable 03/31/21 20:40 [place] Cells Not Reportable 03/31/21 20:40 Bite Cells Not Reportable 03/31/21 20:40 Crenated Cell Not Reportable 03/31/21 20:40 Elliptocytes Not Reportable 03/31/21 20:40 Acanthocytes (Spur) Not Reportable 03/31/21 20:40 Rouleaux Not Reportable 03/31/21 20:40 Hemoglobin C Crystals Not Reportable 03/31/21 20:40 Schistocytes Not Reportable 03/31/21 20:40 Malaria parasites Not Reportable 03/31/21 20:40 [place] Bodies Not Reportable 03/31/21 20:40 Hem Pathologist Commnt No 03/31/21 20:40 PT 12.9 Sec. (12.2-14.9) 04/01/21 04:44 INR 0.88 (0.87-1.13) 04/01/21 04:44 Sodium 138 mmol/L (137-145) 04/01/21 04:44 Potassium 4.9 mmol/L (3.6-5.0) 04/01/21 04:44 Chloride 100.0 mmol/L (98-107) 04/01/21 04:44 Carbon Dioxide 24 mmol/L (22-30) 04/01/21 04:44 Anion Gap 19 mmol/L 04/01/21 04:44 BUN 11 mg/dL (9-20) 04/01/21 04:44 Creatinine 0.7 mg/dL (0.8-1.3) L 04/01/21 04:44 Estimated GFR > 60 ml/min 04/01/21 04:44 BUN/Creatinine Ratio 16 % 04/01/21 04:44 Glucose 188 mg/dL (75-100) H 04/01/21 04:44 Calcium 9.1 mg/dL (8.4-10.2) 04/01/21 04:44 Vale/IV: Voiding Method Toilet Active Medications - Current Medications Current Medications: Generic Name Dose Route Start Last Admin Trade Name Freq PRN Reason Stop Dose Admin Acetaminophen 650 mg 03/31/21 23:50 Acetaminophen 325 Mg Tab PO Q4H PRN Pain MILD(1-3)/Fever >100.5/MAGDALENO Albuterol 2.5 mg 03/31/21 23:50 Albuterol 2.5 Mg/3 Ml Nebu IH Q3HRT PRN Shortness Of Breath Albuterol/Ipratropium 1 ampul 04/01/21 00:00 04/03/21 07:46 Ipratropium/Albuterol Sulfate 3 Ml Ampul.Neb IH 1 ampul Q4HRT SONU Administration Buprenorphine HCl 4 each 04/01/21 20:00 04/02/21 21:08 Buprenorphine 2 Mg/Naloxone 0.5 Mg Film SL 2 each TID SONU Administration Fluoxetine HCl 10 mg 04/02/21 10:00 04/02/21 09:16 Fluoxetine 10 Mg Tab PO 10 mg QDAY SONU Administration Heparin Sodium (Porcine) 5,000 unit 04/01/21 06:00 04/03/21 05:45 Heparin 5,000 Unit/1 Ml Vial SUB-Q 5,000 unit Q8HR SONU Administration Lisinopril 20 mg 04/02/21 10:00 04/02/21 09:16 Lisinopril 20 Mg Tab PO 20 mg DAILY SONU Administration Magnesium Hydroxide 30 ml 03/31/21 23:50 Magnesium Hydroxide (Mom) Oral Liqd Udc PO Q4H PRN Constipation Methylprednisolone Sodium Succinate 40 mg 04/01/21 06:00 04/03/21 05:45 Methylprednisolone Sod Succinate 40 Mg/1 Ml Inj IV 40 mg Q8HR SONU Administration Montelukast Sodium 10 mg 04/01/21 18:00 04/02/21 18:25 Montelukast 10 Mg Tab PO 10 mg QPM SONU Administration Ondansetron HCl 4 mg 03/31/21 23:50 Ondansetron 4 Mg/2 Ml Inj IV Q8H PRN Nausea And Vomiting Sodium Chloride 10 ml 04/01/21 10:00 04/02/21 21:08 Sodium Chloride 0.9% 10 Ml Flush Syringe IV 10 ml BID SONU Administration Sodium Chloride 10 ml 03/31/21 23:50 Sodium Chloride 0.9% 10 Ml Flush Syringe IV PRN PRN LINE FLUSH Tamsulosin HCl 0.4 mg 04/01/21 18:30 04/02/21 09:16 Tamsulosin 0.4 Mg Cap PO 0.4 mg QDAY SONU Administration
[2021-04-03] MEDS: BUPRENORPHINE 2 MG/NALOXONE 0.5 MG FILM SL SCH ×3 (10:15→20:35)
[2021-04-03] MEDS: FLUoxetine 10 MG TAB PO SCH (10:16)
[2021-04-03] MEDS: LISINOPRIL 20 MG TAB PO SCH (10:16)
[2021-04-03] MEDS: TAMSULOSIN 0.4 MG CAP PO SCH (10:16)
--- NOTE | 2021-04-03 11:52 | Progress Note ---
Assessment and Plan 76 y/o male with chronic respiratory failure admitted with COPD exacerbation. 04/03/21: Order BNP now, follow up echo. Continue steroids and continue scheduled pulmicort. 1. Will send BNP 2. If mildly elevated would consider some gentle diuresis given bilateral pleural effusions 3. Agree with current steroid regimen 4. Will add BID pulmicort. Subjective Date of service: 04/03/21 Interval history: patient off floor for echo Objective Vital Signs - 12hr 04/02/21 04/03/21 04/03/21 23:53 04:05 07:46 Temperature 98.1 F 98.4 F Pulse Rate 81 63 Pulse Rate [ 65 Bilateral] Respiratory 22 20 Rate Respiratory 18 Rate [Bilateral ] Blood Pressure 125/58 125/53 O2 Sat by Pulse 95 94 95 Oximetry 04/03/21 08:14 Temperature Pulse Rate Pulse Rate [ Bilateral] Respiratory Rate Respiratory Rate [Bilateral ] Blood Pressure O2 Sat by Pulse 95 Oximetry CBC and BMP: 03/31/21 20:40 04/01/21 04:44 ABG, PT/INR, D-dimer: PT/INR, D-dimer PT 12.9 Sec. (12.2-14.9) 04/01/21 04:44 INR 0.88 (0.87-1.13) 04/01/21 04:44 Abnormal lab findings: Abnormal Labs 03/31/21 03/31/21 04/01/21 20:40 20:40 04:44 WBC 11.4 H Seg Neuts % (Manual) 95.0 H Lymphocytes % (Manual) 4.0 L Seg Neutrophils # Man 10.8 H Lymphocytes # (Manual) 0.5 L Sodium 136 L Creatinine 0.6 L 0.7 L Glucose 125 H 188 H
[2021-04-03] MEDS: MONTELUKAST 10 MG TAB PO SCH (17:33)
[2021-04-04] MEDS: IPRATROPIUM/ALBUTEROL SULFATE 3 ML AMPUL.NEB IH SCH ×4 (01:40→13:00)
[2021-04-04] MEDS: methylPREDNISolone Sod Succinate 40 MG/1 ML INJ IV SCH (05:35)
[2021-04-04] MEDS: HEPARIN 5,000 UNIT/1 ML VIAL SUB-Q SCH (05:37)
--- NOTE | 2021-04-04 09:11 | Discharge Summary ---
Providers - Providers Date of Admission: 04/02/21 13:10 Date of discharge: 04/04/21 Attending physician: BE ORTEGA 04/02/21 12:41 Consult to Physician [CONS] Routine Comment: Consulting Provider: EUN SEVILLA Physician Instructions: Reason For Exam: COPD exac Primary care physician: MINERVA SARAVIA Hospitalization Reason for admission: COPD exac Condition: Stable Hospital course: 76 y/o male with history of COPD, not followed by our practice admitted with COPD exacerbation, bilateral pleural effusion and hypertension. CXR showed small bilateral pleural effusions. Patient is fully vaccinated against covid and denies any covid contacts per report. SUffers from chronic respiratory failure and is on 2 liters at home. Hospital course: . Continue IV Solu-Medrol and bronchodilators/nebulizers. Continue O2 and wean as tolerated. 04/02/2021. Patient noted to have increased work of breathing and shortness of breath posttreatment and despite current therapies. We will continue with IV steroids and taper as tolerated. Pulmonary consultation 04/03/2021. Patient continues to have dyspnea and increased work of breathing. We will check BNP and echocardiogram given the bilateral pleural effusions. I suspect patient may have a component of heart failure. 04/04/2021. Patient had an echocardiogram that revealed normal EF of 60%. Patient also had a BNP that was found to be normal. Patient is back to baseline respiratory status and will be discharged home. Dedicated discharge time 35 minutes Disposition: 30 STILL A PATIENT Final Discharge Diagnosis (Prints w/discharge instructions): COPD exacerbation, small bilateral pleural effusions and hypertension Core Measure Documentation - Palliative Care Palliative Care/ Comfort Measures: Not Applicable - Core Measures Any of the following diagnoses?: none Exam - Constitutional Vitals: Temp Pulse Resp BP Pulse Ox 98.2 F 67 18 141/63 93 04/04/21 07:39 04/04/21 07:39 04/04/21 07:39 04/04/21 07:39 04/04/21 07:39 General appearance: Present: no acute distress, well-nourished - EENT Eyes: Present: PERRL ENT: hearing intact, clear oral mucosa - Neck Neck: Present: supple, normal ROM - Respiratory Respiratory effort: normal Respiratory: bilateral: CTA - Cardiovascular Heart Sounds: Present: S1 & S2. Absent: rub, click - Extremities Extremities: pulses symmetrical, No edema Peripheral Pulses: within normal limits - Abdominal General gastrointestinal: Present: soft, non-tender, non-distended, normal bowel sounds Male genitourinary: Present: normal - Integumentary Integumentary: Present: clear, warm, dry - Musculoskeletal Musculoskeletal: gait normal, strength equal bilaterally - Psychiatric Psychiatric: appropriate mood/affect, intact judgment & insight - Neurologic Neurologic: CNII-XII intact, moves all extremities Plan Activity: advance as tolerated Weight Bearing Status: Weight Bear as Tolerated Diet: regular Follow up with: PRIMARY CARE, [Referring] - 3-5 Days Prescriptions: methylPREDNISolone [Medrol 4MG DOSEPAK (21 tabs)] 4 mg PO DAILY #1 Fluticasone/Umeclidin/Vilanter [Trelegy Ellipta [id number]] 1 each IH DAILY 30 Days
[2021-04-04] MEDS: FLUoxetine 10 MG TAB PO SCH (11:51)
[2021-04-04] MEDS: TAMSULOSIN 0.4 MG CAP PO SCH (11:51)
[2021-04-04] MEDS: LISINOPRIL 20 MG TAB PO SCH (11:56)
[2021-04-04 11:57] VITALS: BP 135/71
[2021-04-04] MEDS: BUPRENORPHINE 2 MG/NALOXONE 0.5 MG FILM SL SCH (12:03)
--- NOTE | 2021-04-04 13:57 | Progress Note ---
Assessment and Plan 76 y/o male with chronic respiratory failure admitted with COPD exacerbation. 04/04/2021: It appears patient does not have congestive heart failure all breathing difficulties are related to COPD with exacerbation. Agree with discharge at this time. Patient will require triple therapy with combination of inhaled LAMA/LABA/ICS. Patient does not follow-up with a oncology nurse navigator. He is recommended to follow-up with Dr. Mullen will require complete pulmonary function evaluation. 04/03/21: Order BNP now, follow up echo. Continue steroids and continue scheduled pulmicort. Subjective Date of service: 04/04/21 Interval history: Patient is feeling better. Seems to have significant COPD. Has not seen a oncology nurse navigator. Currently being followed by his primary care physician Dr. Dallas Gross in [facility]. BNP is normal echocardiogram suggest normal ejection fraction and elevated pulmonary artery pressures Objective Vital Signs - 12hr 04/04/21 04/04/21 04/04/21 03:58 04:00 07:39 Temperature 97.7 F 97.7 F 98.2 F Pulse Rate 69 105 H 67 Pulse Rate [ Bilateral] Respiratory 18 16 18 Rate Respiratory Rate [Bilateral ] Blood Pressure 126/57 141/63 Blood Pressure 137/64 [Right] O2 Sat by Pulse 94 94 93 Oximetry 04/04/21 04/04/21 04/04/21 09:00 09:45 09:46 Temperature Pulse Rate Pulse Rate [ 80 Bilateral] Respiratory 25 H Rate Respiratory 18 Rate [Bilateral ] Blood Pressure Blood Pressure [Right] O2 Sat by Pulse 100 97 Oximetry 04/04/21 11:56 Temperature Pulse Rate 80 Pulse Rate [ Bilateral] Respiratory Rate Respiratory Rate [Bilateral ] Blood Pressure 135/71 Blood Pressure [Right] O2 Sat by Pulse Oximetry Constitutional: no acute distress Eyes: non-icteric ENT: oropharynx moist Neck: supple, no lymphadenopathy Effort: mildly labored Ascultation: Bilateral: diminished breath sounds (Bilaterally) Cardiovascular: regular rate and rhythm Gastrointestinal: normoactive bowel sounds, soft, non-tender Integumentary: normal Extremities: no cyanosis, no edema, pink and warm Neurologic: normal mental status, non-focal exam Psychiatric: mood appropriate CBC and BMP: 03/31/21 20:40 04/01/21 04:44 ABG, PT/INR, D-dimer: PT/INR, D-dimer PT 12.9 Sec. (12.2-14.9) 04/01/21 04:44 INR 0.88 (0.87-1.13) 04/01/21 04:44 Abnormal lab findings: Abnormal Labs 03/31/21 03/31/21 04/01/21 20:40 20:40 04:44 WBC 11.4 H Seg Neuts % (Manual) 95.0 H Lymphocytes % (Manual) 4.0 L Seg Neutrophils # Man 10.8 H Lymphocytes # (Manual) 0.5 L Sodium 136 L Creatinine 0.6 L 0.7 L Glucose 125 H 188 H Chest x-ray: image reviewed (Severe COPD)
== END 2021-04-04 16:25 | disposition home or self-care (01) | DRG 191 ==
LOC: ED 18:24 → 3A 23:50 → 4A 04-01 06:52 → OBSVTOIN 04-02 13:10
PROVIDERS: ADMIT Internal Medicine Geriatric Medicine; ATTEND Hospitalist
DX: J44.1 Chronic obstructive pulmonary disease with (acute) exacerbation (principal); J90 Pleural effusion, not elsewhere classified; J96.10 Chronic respiratory failure, unspecified whether with hypoxia or hypercapnia; I10 Essential (primary) hypertension; Z79.899 Other long term (current) drug therapy; Z90.49 Acquired absence of other specified parts of digestive tract; Z87.891 Personal history of nicotine dependence
CPT/HCPCS: 36415; 71045; 80048; 83880; 85007; 85025; 85610; 93306; 94640; 94644; 94760; G0378; J1644; J2920